=== PATIENT | male | born 1990 | race Two or more races ===

== ENCOUNTER 2017-11-17 06:24 | Emergency (ER) | payer SELFPAY ==
[2017-11-17] VITALS (12 sets, daily range): BP systolic 105–132; BP diastolic 59–89
[~2017-11-17] VITALS: Ht 172.7 cm; Wt 72.6 kg
[2017-11-17] MEDS ORDERED: Haloperidol 5mg/ml Inj IM ONE (06:45)
[2017-11-17] MEDS ORDERED: LORazepam Inj 2mg/ml 1ml IV ONE (06:45)
[2017-11-17] MEDS ORDERED: Isovue-370 150ml vial INJ PRN (06:45)
[2017-11-17] MEDS ORDERED: DiphenhydrAMINE 50mg/ml Inj IVP ONE (06:45)
[2017-11-17 07:33] LABS: BASOPHILS % (AUTO) 0.9 % (0.0-2.0); HEMATOCRIT 48.8 % (42.0-52.0); HEMOGLOBIN 16.4 G/DL (14.2-18.0); LYMPHOCYTES % (AUTO) 14.3 % (20.0-45.0); MEAN CORPUSCULAR VOLUME 87 FL (80-99); MONOCYTES % (AUTO) 5.7 % (1.0-10.0); NEUTROPHILS % (AUTO) 79.2 % (45.0-75.0); PLATELET COUNT 146 K/UL (150-450); RED BLOOD COUNT 5.61 M/UL (4.70-6.10); RED CELL DISTRIBUTION WIDTH 11.6 % (11.6-14.8); WHITE BLOOD COUNT 6.1 K/UL (4.8-10.8)
[2017-11-17 07:38] LABS: ANION GAP 18 mmol/L (5-15); BLOOD UREA NITROGEN 10 mg/dL (7-18); CALCIUM 9.6 MG/DL (8.5-10.1); CARBON DIOXIDE 22 MMOL/L (21-32); CHLORIDE 97 MMOL/L (98-107); CREATININE 1.3 MG/DL (0.55-1.30); POTASSIUM 2.9 MMOL/L (3.5-5.1); SODIUM 137 MMOL/L (136-145)
[2017-11-17 07:49] LABS: ALANINE AMINOTRANSFERASE 24 U/L (12-78); ALBUMIN 5.4 G/DL (3.4-5.0); ALBUMIN/GLOBULIN RATIO 1.4 (1.0-2.7); ALKALINE PHOSPHATASE 68 U/L (46-116); ASPARTATE AMINO TRANSFERASE 24 U/L (15-37)
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
[2017-11-17] MEDS ORDERED: ceFAZolin 2gm/50ml Premix 50 ML IVPB ONE (10:00)
[2017-11-17] MEDS ORDERED: Tetanus/Diptheria/Pertussis Vaccine 0.5ml Syr IM ONE (10:15)
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
[2017-11-17] MEDS ORDERED: Potassium Chloride 10 MEQ in NS 110 ML IVPB ONE (11:00)
--- NOTE | 2017-11-17 14:22 | Diagnostic Imaging Report ---
Indication: Shortness of breath Technique: One view of the chest Comparison: none Findings: Lungs and pleural spaces are clear. Heart size is normal Impression: No acute process
== END 2017-11-17 12:10 | disposition short-term general hospital (02) ==
LOC: EDBD 06:24 → EMR 07:03
DX: S11.91XA Laceration without foreign body of unspecified part of neck, initial encounter (principal); X78.1XXA Intentional self-harm by knife, initial encounter; Y92.009 Unspecified place in unspecified non-institutional (private) residence as the place of occurrence of the external cause; R45.851 Suicidal ideations; Z23 Encounter for immunization
CPT/HCPCS: 36415; 70498; 71045; 80053; 80307; 85025; 90471; 90715; 96372; 96374; 96375; 99285; G0480; J0690; J1200; J1630; J3480; Q9967; 80329